=== PATIENT | female | born 1945 | race Caucasian/White ===

== ENCOUNTER 2017-04-02 10:28 | Inpatient (IN) ==
[2017-04-02 10:47] LABS: MANUAL DIFF NEEDED? NO
[2017-04-02 11:01] LABS: BASO% 0.8 % (0.0-0.8); HEMATOCRIT 43.8 % (37.0-47.0); HEMOGLOBIN 15.2 g/dL (12.0-16.0); LYMPH# 1.13 X1000 (1.2-3.4); LYMPH% 22.8 % (20.5-51.1); MCH 30.9 PG (27-31); MCHC 34.7 g/dL (33-37); MONO# 0.66 X1000 (0.11-0.59); MONO% 13.3 % (1.7-9.3); MPV 10.8 FL (7.4-10.4); NEUT% 63.1 % (42.2-75.2); PLT 112 X1000 (130-400); RBC 4.92 XMIL (4.2-5.4)
[2017-04-02 11:23] LABS: ALBUMIN 4.1 g/dL (3.5-5.0); CALCIUM 8.8 mg/dL (8.8-10.2); POTASSIUM 4.1 mmol/L (3.5-5.1); TOTAL BILIRUBIN 1.23 mg/dL (0.20-1.00); TOTAL PROTEIN 7.9 g/dL (6.3-8.3)
[2017-04-02] MEDS ORDERED: XYLOCAINE-MPF 1% INJ ONE (14:45)
[2017-04-02] MEDS ORDERED: ROCEPHIN IM ONE (14:45)
[2017-04-02 14:50] LABS: URINE MICRO REVIEW NEEDED? NO; URINE SOURCE CLEAN CATCH
[2017-04-02 15:00] LABS: BILIRUBIN URINE NEGATIVE (NEGATIVE); BLOOD URINE TRACE (NEGATIVE); COLOR YELLOW; GLUCOSE URINE NEGATIVE (NEGATIVE); LEUKOCYTES URINE LARGE (NEGATIVE); NITRITE URINE NEGATIVE (NEGATIVE); PROTEIN URINE TRACE mg/dL (NEGATIVE); SP GRAVITY URINE 1.029; TURBIDITY URINE CLEAR (CLEAR); UROBILINOGEN URINE 2 mg/dL (NORMAL)
[2017-04-02 15:01] LABS: UR EPITHELIAL CELLS <10 /HPF (<10); URINE BACTERIA NEGATIVE /HPF; URINE CULTURE NEEDED? YES
[2017-04-02] MEDS ORDERED: NS 1,000 ML IV ONE ×2 (15:58→18:17)
[2017-04-02] MEDS ORDERED: MIRALAX PO PRN (18:17)
[2017-04-02] MEDS ORDERED: NORCO-10 PO PRN (18:17)
[2017-04-02] MEDS: SINEMET 25/100 PO SCH (22:12)
[2017-04-02] MEDS: KLONOPIN PO SCH (22:12)
[2017-04-02] MEDS: REQUIP PO SCH (22:12)
[2017-04-02] MEDS: TYLENOL PO PRN (22:13)
[2017-04-03] MEDS: SYNTHROID PO SCH (06:26)
[2017-04-03] MEDS: TYLENOL PO PRN ×2 (08:26→21:14)
[2017-04-03] MEDS: AROMASIN PO SCH (08:26)
[2017-04-03] MEDS: REQUIP PO SCH ×4 (08:26→21:12)
[2017-04-03] MEDS: SYMMETREL PO SCH (08:26)
[2017-04-03] MEDS: HEMOCYTE PLUS CAPSULE PO SCH (08:26)
[2017-04-03] MEDS: CALTRATE 600 + D PO SCH (08:26)
[2017-04-03] MEDS: SINEMET 25/100 PO SCH ×4 (08:26→21:12)
[2017-04-03 09:19] LABS: MANUAL DIFF NEEDED? NO
[2017-04-03 09:56] LABS: HEMATOCRIT 43.2 % (37.0-47.0); HEMOGLOBIN 15.1 g/dL (12.0-16.0); LYMPH# 0.78 X1000 (1.2-3.4); LYMPH% 19.8 % (20.5-51.1); MCH 30.8 PG (27-31); MCV 88.2 FL (81-99); MONO# 0.47 X1000 (0.11-0.59); MONO% 11.9 % (1.7-9.3); MPV 11.3 FL (7.4-10.4); NEUT% 67.3 % (42.2-75.2); PLT 98 X1000 (130-400)
[2017-04-03 09:59] LABS: AGAP 18; ALBUMIN 3.5 g/dL (3.5-5.0); ALKALINE PHOSPHATASE 99 U/L (32-104); BUN 16 mg/dL (8-22); CHLORIDE 96 mmol/L (98-107); COSMO 267; GOT 81 U/L (10-30); GPT 21 U/L (10-36); POTASSIUM 4.4 mmol/L (3.5-5.1); SODIUM 132 mmol/L (136-145); TCO2 18 mmol/L (25-35); TOTAL BILIRUBIN 1.22 mg/dL (0.20-1.00); TOTAL PROTEIN 6.7 g/dL (6.3-8.3)
[2017-04-03] MEDS: 1/2 NS 1,000 ML IV SCH (14:09)
[2017-04-03] MEDS ORDERED: ROCEPHIN 1 GM in NS 50 ML IV SCH (15:00)
[2017-04-03] MEDS: KLONOPIN PO SCH (21:12)
[2017-04-03 21:24] LABS: URINE MICRO REVIEW NEEDED? NO; URINE SOURCE VOIDED
[2017-04-03 21:28] LABS: BILIRUBIN URINE NEGATIVE (NEGATIVE); BLOOD URINE SMALL (NEGATIVE); COLOR YELLOW; GLUCOSE URINE NEGATIVE (NEGATIVE); LEUKOCYTES URINE NEGATIVE (NEGATIVE); NITRITE URINE NEGATIVE (NEGATIVE); PH URINE 6.5; PROTEIN URINE NEGATIVE (NEGATIVE); SP GRAVITY URINE 1.015; TURBIDITY URINE CLEAR (CLEAR); UR EPITHELIAL CELLS <10 /HPF (<10); URINE BACTERIA NEGATIVE /HPF; URINE WBC <10 /HPF (<10); UROBILINOGEN URINE 2 mg/dL (NORMAL)
[2017-04-04] MEDS: SYNTHROID PO SCH (06:17)
[2017-04-04] MEDS: SYMMETREL PO SCH (08:33)
[2017-04-04] MEDS: REQUIP PO SCH ×4 (08:33→20:45)
[2017-04-04] MEDS: CALTRATE 600 + D PO SCH (08:33)
[2017-04-04] MEDS: SINEMET 25/100 PO SCH ×4 (08:33→20:45)
[2017-04-04] MEDS: AROMASIN PO SCH (08:33)
[2017-04-04] MEDS: HEMOCYTE PLUS CAPSULE PO SCH (08:33)
[2017-04-04] MEDS: 1/2 NS 1,000 ML IV SCH ×2 (08:38→11:40)
[2017-04-04] MEDS: LEVAQUIN 750 MG/D5W 750 MG/150 ML IVPB IV SCH (11:47)
[2017-04-04] MEDS: KLONOPIN PO SCH (20:44)
[2017-04-05] MEDS: 1/2 NS 1,000 ML IV SCH ×2 (05:40→21:07)
[2017-04-05] MEDS: SYNTHROID PO SCH (05:40)
[2017-04-05 07:04] LABS: EOS# 0.05 X1000 (0.0-0.7); EOS% 1.4 % (0.0-10.0); HEMATOCRIT 38.9 % (37.0-47.0); HEMOGLOBIN 13.3 g/dL (12.0-16.0); LYMPH# 1.71 X1000 (1.2-3.4); LYMPH% 48.3 % (20.5-51.1); MANUAL DIFF NEEDED? YES; MCH 30.2 PG (27-31); MCHC 34.2 g/dL (33-37); MCV 88.4 FL (81-99); MONO# 0.68 X1000 (0.11-0.59); MONO% 19.2 % (1.7-9.3); MPV 11.6 FL (7.4-10.4); NEUT% 29.1 % (42.2-75.2); PLT 91 X1000 (130-400)
[2017-04-05 07:24] LABS: AGAP 10; ALBUMIN 3.4 g/dL (3.5-5.0); ALKALINE PHOSPHATASE 91 U/L (32-104); BUN 15 mg/dL (8-22); CALCIUM 8.4 mg/dL (8.8-10.2); CHLORIDE 102 mmol/L (98-107); COSMO 271; GOT 75 U/L (10-30); GPT 33 U/L (10-36); POTASSIUM 4.2 mmol/L (3.5-5.1); SODIUM 135 mmol/L (136-145); TCO2 23 mmol/L (25-35); TOTAL BILIRUBIN 0.73 mg/dL (0.20-1.00); TOTAL PROTEIN 6.7 g/dL (6.3-8.3)
[2017-04-05 07:36] LABS: LYMPHS 52 % (21-51); MONO 2 % (1-9)
[2017-04-05] MEDS: AROMASIN PO SCH (09:07)
[2017-04-05] MEDS: SYMMETREL PO SCH (09:07)
[2017-04-05] MEDS: SINEMET 25/100 PO SCH ×4 (09:08→21:07)
[2017-04-05] MEDS: HEMOCYTE PLUS CAPSULE PO SCH (09:08)
[2017-04-05] MEDS: CALTRATE 600 + D PO SCH (09:08)
[2017-04-05] MEDS: REQUIP PO SCH ×4 (09:08→21:07)
[2017-04-05] MEDS: LEVAQUIN 750 MG/D5W 750 MG/150 ML IVPB IV SCH (09:09)
[2017-04-05] MEDS: KLONOPIN PO SCH (21:07)
[2017-04-05] MEDS: LOVENOX SUBQ SCH (21:11)
[2017-04-06] MEDS: 1/2 NS 1,000 ML IV SCH (01:33)
[2017-04-06] MEDS: SYNTHROID PO SCH (06:38)
[2017-04-06 06:49] LABS: MANUAL DIFF NEEDED? NO
[2017-04-06 07:03] LABS: BASO% 1.7 % (0.0-0.8); EOS# 0.11 X1000 (0.0-0.7); EOS% 2.7 % (0.0-10.0); HEMATOCRIT 38.7 % (37.0-47.0); HEMOGLOBIN 13.5 g/dL (12.0-16.0); LYMPH# 2.06 X1000 (1.2-3.4); MCH 30.6 PG (27-31); MCHC 34.9 g/dL (33-37); MCV 87.8 FL (81-99); MONO# 0.47 X1000 (0.11-0.59); MONO% 11.4 % (1.7-9.3); MPV 11.4 FL (7.4-10.4); NEUT% 34.2 % (42.2-75.2); PLT 121 X1000 (130-400); RBC 4.41 XMIL (4.2-5.4)
[2017-04-06 07:07] LABS: INR 1.07; PROTIME 11.3 Seconds (9.2-11.7); PTT 29.2 Seconds (22.0-36.0)
[2017-04-06 07:27] LABS: AGAP 12; ALBUMIN 3.6 g/dL (3.5-5.0); ALKALINE PHOSPHATASE 106 U/L (32-104); BUN 17 mg/dL (8-22); CHLORIDE 106 mmol/L (98-107); COSMO 279; GOT 85 U/L (10-30); GPT 31 U/L (10-36); POTASSIUM 4.6 mmol/L (3.5-5.1); SODIUM 139 mmol/L (136-145); TCO2 21 mmol/L (25-35); TOTAL BILIRUBIN 0.72 mg/dL (0.20-1.00); TOTAL PROTEIN 7.2 g/dL (6.3-8.3)
[2017-04-06 08:11] LABS: RETIC% 0.61 % (0.8-2.1); RETIC-HE 30.7 PG (28.2-36.6)
[2017-04-06] MEDS: CALTRATE 600 + D PO SCH (08:42)
[2017-04-06] MEDS: SINEMET 25/100 PO SCH ×4 (08:42→22:39)
[2017-04-06] MEDS: SYMMETREL PO SCH (08:42)
[2017-04-06] MEDS: AROMASIN PO SCH (08:42)
[2017-04-06] MEDS: HEMOCYTE PLUS CAPSULE PO SCH (08:42)
[2017-04-06] MEDS: REQUIP PO SCH ×4 (09:10→22:39)
[2017-04-06] MEDS: LEVAQUIN 750 MG/D5W 750 MG/150 ML IVPB IV SCH (09:11)
[2017-04-06] MEDS: KLONOPIN PO SCH (21:16)
[2017-04-06] MEDS: LOVENOX SUBQ SCH (21:16)
[2017-04-07] MEDS: TYLENOL PO PRN (05:00)
[2017-04-07] MEDS: SYNTHROID PO SCH (06:22)
[2017-04-07 06:33] LABS: MANUAL DIFF NEEDED? NO
[2017-04-07 06:40] LABS: BASO% 0.8 % (0.0-0.8); EOS# 0.13 X1000 (0.0-0.7); EOS% 2.7 % (0.0-10.0); HEMATOCRIT 39.5 % (37.0-47.0); HEMOGLOBIN 13.6 g/dL (12.0-16.0); LYMPH# 2.35 X1000 (1.2-3.4); LYMPH% 49.1 % (20.5-51.1); MCH 30.7 PG (27-31); MCHC 34.4 g/dL (33-37); MCV 89.2 FL (81-99); MONO# 0.48 X1000 (0.11-0.59); MPV 10.6 FL (7.4-10.4); NEUT% 37.4 % (42.2-75.2); PLT 136 X1000 (130-400); RBC 4.43 XMIL (4.2-5.4)
[2017-04-07 06:57] LABS: AGAP 11; BUN 15 mg/dL (8-22); CALCIUM 10.3 mg/dL (8.8-10.2); CHLORIDE 104 mmol/L (98-107); COSMO 283; POTASSIUM 4.3 mmol/L (3.5-5.1); SODIUM 142 mmol/L (136-145); TCO2 27 mmol/L (25-35)
[2017-04-07 07:49] VITALS: BP 155/75
[2017-04-07] MEDS: AROMASIN PO SCH (08:57)
[2017-04-07] MEDS: HEMOCYTE PLUS CAPSULE PO SCH (08:58)
[2017-04-07] MEDS: SINEMET 25/100 PO SCH (08:58)
[2017-04-07] MEDS: CALTRATE 600 + D PO SCH (08:58)
[2017-04-07] MEDS: REQUIP PO SCH (08:58)
[2017-04-07] MEDS: SYMMETREL PO SCH (08:58)
[2017-04-07] MEDS ORDERED: LEVAQUIN PO SCH (09:00)
== END 2017-04-07 16:30 | disposition home or self-care (01) ==
LOC: ED 10:28 → SUATTDRO 17:41 → 3N 17:41
PROVIDERS: ATTEND Internal Medicine